=== PATIENT | female | born 1955 | race Caucasian/White ===

== ENCOUNTER 2018-08-22 08:01 | Inpatient (IN) | payer BC ==
[2018-08-22] MEDS ORDERED: ONDANSETRON 4 MG INJ IV (09:30)
[2018-08-22] MEDS ORDERED: NACL 0.9% 3 ML SYG IV (09:30)
[2018-08-22] MEDS ORDERED: ALBUTEROL 0.083% (NEB) 2.5 MG/3 ML AMP HHN (10:00)
[2018-08-22] MEDS ORDERED: morphine 2 MG INJ IV (10:30)
[2018-08-22] MEDS ORDERED: traMADol 50 MG TAB PO (10:30)
[2018-08-22] MEDS ORDERED: KETOROLAC 15 MG INJ IV (10:30)
[2018-08-22] MEDS: ACETAMINOPHEN 325 MG TAB PO (12:25)
[2018-08-22] MEDS: ALBUTEROL 0.083% (NEB) 2.5 MG/3 ML AMP HHN ×2 (15:53→20:19)
[2018-08-22] MEDS ORDERED: GLUCAGON 1 MG INJ IM (18:00)
[2018-08-22] MEDS ORDERED: GLUCOSE GEL 15 GRAM TUBE BUCCAL (18:00)
[2018-08-22] MEDS ORDERED: DEXTROSE 50% 50 ML SYRINGE IV ×2 (18:00)
[2018-08-22] MEDS ORDERED: GLUCOSE GEL 15 GRAM TUBE PO ×2 (18:00)
[2018-08-22] MEDS: INSULIN ASPART [NOVOLOG] 3 ML PEN SC ×2 (18:07→21:00)
[2018-08-22] MEDS: MONTELUKAST 10 MG TAB PO (21:19)
[2018-08-22] MEDS: METHYLPREDNISOLONE 40 MG INJ IV (21:20)
[2018-08-23 05:27] LABS: ADD MAN DIFF? NO
[2018-08-23 05:28] LABS: WHITE BLOOD COUNT 10.2 10^3/ul (4.8-10.8)
[2018-08-23 05:28] LABS: BASOPHILS % 0.1 % (0.0-2.0); HEMATOCRIT 41.5 % (37.0-47.0); HEMOGLOBIN 14.1 g/dl (12.0-16.0); LYMPHOCYTES # 1.1 10^3/ul (0.8-2.9); LYMPHOCYTES % 10.9 % (15.0-51.0); MEAN CORPUSCULAR HEMOGLOBIN 31.8 pg (29.0-33.0); MEAN CORPUSCULAR VOLUME 93.5 fl (82.0-101.0); MEAN PLATELET VOLUME 9.9 fl (7.4-10.4); MONOCYTE # 0.2 10^3/ul (0.3-0.9); MONOCYTES % 1.5 % (0.0-11.0); NEUTROPHIL # 8.9 10^3/ul (1.6-7.5); NEUTROPHILS % 87.1 % (39.0-77.0); PLATELET COUNT 350 10^3/UL (140-415); RED BLOOD COUNT 4.44 10^6/ul (4.20-5.40); RED CELL DISTRIBUTION WIDTH 13.3 % (11.5-14.5)
[2018-08-23 05:52] LABS: HEMOGLOBIN A1C 5.3 % (0-5.9)
[2018-08-23 06:09] LABS: ALANINE AMINOTRANSFERASE 23 IU/L (13-69); ALBUMIN/GLOBULIN RATIO 1.25; ALKALINE PHOSPHATASE 80 IU/L (42-121); ANION GAP 13 (5-13); ASPARTATE AMINO TRANSFERASE 27 IU/L (15-46); BILIRUBIN,INDIRECT 0.1 mg/dl (0-1.1); BILIRUBIN,TOTAL 0.1 mg/dl (0.2-1.3); BLOOD UREA NITROGEN 26 mg/dl (7-20); CALCIUM 9.8 mg/dl (8.4-10.2); CARBON DIOXIDE 27 mmol/L (21-31); CHLORIDE 104 mmol/L (97-110); CREATININE 0.76 mg/dl (0.44-1.00); Estimated GFR > 60 mL/min (>60); GLUCOSE 139 mg/dl (70-220); MAGNESIUM 2.4 mg/dl (1.7-2.5); POTASSIUM 3.8 mmol/L (3.5-5.1); SODIUM 144 mmol/L (135-144); TOTAL PROTEIN 7.2 g/dl (6.1-8.1)
[2018-08-23] MEDS: ALBUTEROL 0.083% (NEB) 2.5 MG/3 ML AMP HHN ×3 (07:27→21:30)
[2018-08-23] MEDS: INSULIN ASPART [NOVOLOG] 3 ML PEN SC (07:50)
[2018-08-23] MEDS ORDERED: NON-FORMULARY/PATIENT OWN MED (Fluticasone Furoate (Arnuity Ellipta) 100 MCG) INHALATION (09:00)
[2018-08-23] MEDS: AZITHROMYCIN 250 MG TAB PO (10:01)
[2018-08-23] MEDS: METHYLPREDNISOLONE 40 MG INJ IV (10:01)
[2018-08-23] MEDS: FLUOXETINE 20 MG CAP PO (10:02)
[2018-08-23] MEDS: AMLODIPINE 10 MG TAB PO (10:02)
[2018-08-23] MEDS: MOMETASONE 0.24 GM INHALER INH (11:55)
[2018-08-23] MEDS: MONTELUKAST 10 MG TAB PO (20:38)
[2018-08-24] MEDS: ACETAMINOPHEN 325 MG TAB PO (04:11)
[2018-08-24] MEDS: GUAIFENESIN/CODEINE 5ML CUP PO ×3 (04:18→16:42)
[2018-08-24] MEDS: ALBUTEROL 0.083% (NEB) 2.5 MG/3 ML AMP HHN ×3 (08:21→20:11)
[2018-08-24] MEDS: AZITHROMYCIN 250 MG TAB PO (09:14)
[2018-08-24] MEDS: AMLODIPINE 10 MG TAB PO (09:14)
[2018-08-24] MEDS: METHYLPREDNISOLONE 40 MG INJ IV (09:14)
[2018-08-24] MEDS: FLUOXETINE 20 MG CAP PO (09:14)
[2018-08-24] MEDS: MOMETASONE 0.24 GM INHALER INH (09:15)
[2018-08-24] MEDS: MONTELUKAST 10 MG TAB PO (21:00)
[2018-08-25 05:01] LABS: ADD MAN DIFF? NO
[2018-08-25 05:03] LABS: WHITE BLOOD COUNT 10.2 10^3/ul (4.8-10.8)
[2018-08-25 05:03] LABS: BASOPHILS % 0.3 % (0.0-2.0); HEMATOCRIT 40.5 % (37.0-47.0); HEMOGLOBIN 13.4 g/dl (12.0-16.0); LYMPHOCYTES # 2.4 10^3/ul (0.8-2.9); LYMPHOCYTES % 23.9 % (15.0-51.0); MEAN CORPUSCULAR HEMOGLOBIN 31.3 pg (29.0-33.0); MEAN CORPUSCULAR HGB CONC 33.1 g/dl (32.0-37.0); MEAN CORPUSCULAR VOLUME 94.6 fl (82.0-101.0); MEAN PLATELET VOLUME 9.5 fl (7.4-10.4); MONOCYTE # 0.6 10^3/ul (0.3-0.9); MONOCYTES % 6.1 % (0.0-11.0); NEUTROPHIL # 7.1 10^3/ul (1.6-7.5); NEUTROPHILS % 69.1 % (39.0-77.0); PLATELET COUNT 328 10^3/UL (140-415); RED BLOOD COUNT 4.28 10^6/ul (4.20-5.40); RED CELL DISTRIBUTION WIDTH 13.1 % (11.5-14.5)
[2018-08-25 05:19] LABS: ANION GAP 5 (5-13); BLOOD UREA NITROGEN 16 mg/dl (7-20); CALCIUM 9.5 mg/dl (8.4-10.2); CARBON DIOXIDE 27 mmol/L (21-31); CHLORIDE 109 mmol/L (97-110); CREATININE 0.62 mg/dl (0.44-1.00); Estimated GFR > 60 mL/min (>60); GLUCOSE 89 mg/dl (70-220); SODIUM 141 mmol/L (135-144)
[2018-08-25] MEDS: PANTOPRAZOLE (EC) 40 MG TAB PO (05:25)
[2018-08-25] MEDS: ALBUTEROL 0.083% (NEB) 2.5 MG/3 ML AMP HHN ×2 (08:48→14:22)
[2018-08-25] MEDS: METHYLPREDNISOLONE 40 MG INJ IV (09:27)
[2018-08-25] MEDS: MOMETASONE 0.24 GM INHALER INH (09:28)
[2018-08-25] MEDS: AZITHROMYCIN 250 MG TAB PO (09:29)
[2018-08-25] MEDS: AMLODIPINE 5 MG TAB PO (09:29)
[2018-08-25] MEDS: FLUOXETINE 20 MG CAP PO (09:29)
[2018-08-26] MEDS ORDERED: METHYLPREDNISOLONE 40 MG INJ IV (09:00)
== END 2018-08-25 17:25 | disposition home or self-care (01) | DRG 190 ==
LOC: 6WM 08:01 → MS1 12:47
PROVIDERS: Internal Medicine
DX: J42 Unspecified chronic bronchitis (principal); J96.01 Acute respiratory failure with hypoxia; I10 Essential (primary) hypertension; R73.03 Prediabetes; J45.909 Unspecified asthma, uncomplicated; K21.9 Gastro-esophageal reflux disease without esophagitis
CPT/HCPCS: 71250; 80048; 80053; 82962; 83036; 83735; 85025; 93306; 94640; 94664; 94760; 97116; 97162; 97166; 97530; 97535